=== PATIENT | male | born 1990 | race Caucasian/White ===

== ENCOUNTER 2024-09-07 22:50 | Inpatient (IN) | payer SELFPAY ==
[~2024-09-07] VITALS: Ht 175.3 cm; Wt 88.0 kg
[~2024-09-07 22:50] MED LIST: ACYC800 PO; HYDACE5 PO; HYDHCL10 PO; IBUP600 PO; IBUP800 PO; PRED20 PO; PROM25 PO; TRAM50 PO; TRIA80TC TOP
[2024-09-07] MEDS ORDERED: Morphine Sulfate 4 MG/1 ML Injection IV ONE (23:00)
[2024-09-07 23:08] LABS: Calcium, Ionized (POC) 1.17 mmol/L (1.10-1.46); Chloride (POC) 102 mmol/L (98-108); Creatinine (POC) 1.1 mg/dL (0.8-1.3); Glucose (ISTAT POC) 137 mg/dL (70-99); Hemoglobin (POC) 16.3 g/dL (13.5-17.5); Potassium (POC) 4.2 mmol/L (3.5-5.5); Sodium (POC) 139 mmol/L (135-148); Total CO2 (POC) 28 mmol/L (21-32)
[2024-09-07 23:09] LABS: BASOPHILS ABSOLUTE AUTO 0.06 K/mm3 (0.00-0.23); BASOPHILS PERCENT AUTO 0 % (0-2); EOSINOPHILS ABSOLUTE AUTO 0.05 K/mm3 (0.00-0.68); EOSINOPHILS PERCENT AUTO 0 % (0-6); Hematocrit 46.5 % (37.0-53.0); Hemoglobin 16.1 g/dL (13.5-17.5); IMMATURE GRAN PERCENT AUTO 1 % (0-1); LYMPHOCYTES ABSOLUTE AUTO 2.07 K/mm3 (0.84-5.20); LYMPHOCYTES PERCENT AUTO 15 % (21-46); MONOCYTES ABSOLUTE AUTO 0.73 K/mm3 (0.16-1.47); MONOCYTES PERCENT AUTO 5 % (4-13); Mean Corpuscular HGB 30.6 pg (26.0-34.0); Mean Corpuscular HGB Conc 34.6 g/dL (31.5-36.5); Mean Corpuscular Volume 88 fL (80-100); Mean Platelet Volume 10.2 fL (9.1-12.4); NEUTROPHILS ABSOLUTE AUTO 11.24 K/mm3 (1.96-9.15); NEUTROPHILS PERCENT AUTO 79 % (41-73); Platelet Count 337 K/mm3 (150-400); RDW Coefficient Variation 11.9 % (11.7-14.2); Red Blood Cell Count 5.26 M/mm3 (4.30-5.90); White Blood Cell Count 14.25 K/mm3 (4.00-11.30)
[2024-09-07] MEDS ORDERED: Ondansetron HCl 2 MG / ML 2ML Vial ONE (23:17)
[2024-09-07] MEDS ORDERED: Ondansetron HCl 2 MG / ML 2ML Vial IV ONE (23:25)
[2024-09-07 23:28] LABS: Albumin, Blood 4.3 g/dL (3.4-5.0); Albumin/Globulin Ratio 1.1 (0.8-1.8); Bilirubin, Total 0.6 mg/dL (0.1-1.0); Bun/Creatinine Ratio 13.1 (12.0-20.0); Calcium, Blood 10.3 mg/dL (8.5-10.1); Creatinine, Blood 0.99 mg/dL (0.60-1.20); Potassium, Blood 4.2 mmol/L (3.5-5.5); Total Protein, Blood 8.3 g/dL (6.4-8.2)
[2024-09-07 23:32] LABS: International Normalized Ratio 0.92; Prothrombin Time Results 9.9 Sec (9.7-11.5)
[2024-09-08] VITALS (16 sets, daily range): BP systolic 127–156; BP diastolic 77–111
[2024-09-08] MEDS ORDERED: Ondansetron HCl 2 MG / ML 2ML Vial ONE ×3 (00:52→19:53)
[2024-09-08] MEDS ORDERED: Ondansetron HCl 2 MG / ML 2ML Vial IV PRN (01:05)
[2024-09-08] MEDS ORDERED: Ondansetron HCl 2 MG / ML 2ML Vial IV ONE (01:05)
[2024-09-08] MEDS ORDERED: NS 1,000 ML IV SCH (01:05)
[2024-09-08] MEDS ORDERED: FentaNYL Citrate 50 MCG/ML 2 ML Injection IV PRN ×2 (01:05→04:00)
[2024-09-08] MEDS ORDERED: FLU VACC TS2024-25(6MOS UP)/PF 45 MCG/0.5 ML SYRINGE IM ONE (01:05)
[2024-09-08] MEDS ORDERED: VENL150ER PO (01:53)
[2024-09-08] MEDS ORDERED: AMPDEX30CR PO (01:54)
--- NOTE | 2024-09-08 02:57 | NUR ---
ARRIVAL TO UNIT PT ARRIVED TO UNIT AT APPROX 0145 FROM ER. PT HAS NG TUBE IN PLACE, HOOKED UP TO LIS WHEN IN BED. ABLE TO TRANSFER IND TO THE BED. PT ON TELE RUNNING SINUS IN THE 80'S. PT GIVEN CALL LIGHT AND EDUCATED ON HOW TO USE. VSS. NO OTHER CONCERNS AT THIS TIME CALL LIGHT WITHIN REACH
[2024-09-08] MEDS ORDERED: HYDROmorphone HCl/Pf 1MG SYR IV PRN (05:30)
--- NOTE | 2024-09-08 05:31 | NUR ---
SHIFT SUMMARY SINCE COMING TO FLOOR PT HAS SLEPT. LAB THEN CAME AROUND TO DRAW ANOTHER LACTIC ACID. PT THEN C/O NAUSEA, AND BEING HOT. PT GIVEN ZOFRAN, WASHCLOTH FOR HEAD AND A FAN. PT ALSO REPORTS HAS INC PAIN IN THE RUQ OF ABD AND BEING SLIGHTLY MORE DISTENDED. CALL PLACED WITH HOPSITALIST. NEW ORDERS FOR PAIN MEDS GIVEN. VS REMAIN STABLE. HOSPITALIST WILL DEFER TO GENERAL SURGERY FOR NG TUBE PLACMENT AND MANAGEMENT. PT RESTING WITH EYES CLOSED AT THIS TIME, CALL LIGHT WITHIN REACH
[2024-09-08 07:21] LABS: BASOPHILS ABSOLUTE AUTO 0.04 K/mm3 (0.00-0.23); BASOPHILS PERCENT AUTO 0 % (0-2); EOSINOPHILS ABSOLUTE AUTO 0.01 K/mm3 (0.00-0.68); EOSINOPHILS PERCENT AUTO 0 % (0-6); Hematocrit 46.1 % (37.0-53.0); Hemoglobin 15.8 g/dL (13.5-17.5); IMMATURE GRAN ABSOLUTE AUTO 0.11 K/mm3 (0.00-0.10); IMMATURE GRAN PERCENT AUTO 1 % (0-1); LYMPHOCYTES ABSOLUTE AUTO 1.04 K/mm3 (0.84-5.20); LYMPHOCYTES PERCENT AUTO 6 % (21-46); MONOCYTES ABSOLUTE AUTO 0.84 K/mm3 (0.16-1.47); MONOCYTES PERCENT AUTO 5 % (4-13); Mean Corpuscular HGB 30.2 pg (26.0-34.0); Mean Corpuscular HGB Conc 34.3 g/dL (31.5-36.5); Mean Corpuscular Volume 88 fL (80-100); NEUTROPHILS ABSOLUTE AUTO 15.49 K/mm3 (1.96-9.15); NEUTROPHILS PERCENT AUTO 88 % (41-73); Platelet Count 294 K/mm3 (150-400); RDW Coefficient Variation 11.9 % (11.7-14.2); RDW Standard Deviation 38.6 fL (35.1-46.3); Red Blood Cell Count 5.23 M/mm3 (4.30-5.90); White Blood Cell Count 17.53 K/mm3 (4.00-11.30)
[2024-09-08 07:38] LABS: Albumin, Blood 3.9 g/dL (3.4-5.0); Albumin/Globulin Ratio 1.1 (0.8-1.8); Bilirubin, Total 0.5 mg/dL (0.1-1.0); Bun/Creatinine Ratio 15.1 (12.0-20.0); Calcium, Blood 9.6 mg/dL (8.5-10.1); Creatinine, Blood 0.79 mg/dL (0.60-1.20); Globulin, Blood 3.6 g/dL (2.2-4.0); Potassium, Blood 4.2 mmol/L (3.5-5.5); Total Protein, Blood 7.5 g/dL (6.4-8.2)
[2024-09-08] MEDS ORDERED: HydrALAZINE HCl 20 MG / ML 1ML Vial IV PRN (08:00)
--- NOTE | 2024-09-08 10:27 | NUR ---
PER NURSING REPORT NG TUBE PLACED IN ED. NG TUBE SET TO INT SUCTION AT START OF SHIFT.
[2024-09-08] MEDS ORDERED: CeFAZolin Sodium 2,000 MG in NS 100 ML IV SCH (17:35)
--- NOTE | 2024-09-08 17:55 | NUR ---
SHIFT NOTE: PT A/OX4 ABLE TO MAKE HIS NEEDS KNOWN. HE IS ON RA WITH NO REPORTS OF SOB. HE IS ON TELE WITH NO ACUTE CHANGES THIS SHIFT. DENIES CHEST PAIN/PRESSURE. NG TUBE SET TO INT SUCTION T/O SHIFT. PT TRANSPORTED TO SURGERY AT 1755.
[2024-09-08] MEDS ORDERED: Bupivacaine 0.5% HCl 5 MG/ML 30MLVIAL ONE (18:07)
--- NOTE | 2024-09-08 18:13 | NUR ---
PT ARRIVES TO PACU VIA GURNEY FROM RM 224. PLEASANT & COOPERATIVE. SURGICAL PACK COMPLETE. SURGICAL HAT/PAS SLEEVES/BP CUFF PLACED. AFEBRILE/HYPERTIVE 143/102. LR AT TKO. DR FARRELL VERBAL ORDER FOR ANCEF 2MG IV PREOP MED. PT STATES "I DO FEEL BETTER THAN THIS MORNING". WARM BLANKETS PLACED. RESTING QUIETLY.
[2024-09-08] MEDS ORDERED: propofoL 20 ML IV ONE (18:20)
[2024-09-08] MEDS ORDERED: FentaNYL Citrate 50 MCG/ML 2 ML Injection ONE (18:20)
[2024-09-08] MEDS ORDERED: Rocuronium Bromide 10 MG/ML 5ML Injection IV ONE (18:20)
--- NOTE | 2024-09-08 18:35 | NUR ---
PT TO RM OR 2 VIA [facility]IGIO AT 1825 IN STABLE CONDITION.
[2024-09-08] MEDS ORDERED: Dexamethasone Sod Phos 10 MG/ML 1ML VIAL ONE (18:48)
[2024-09-08] MEDS ORDERED: Sugammadex Sodium 200 MG/2ML SDV (100 MG/ML) ONE (19:02)
[2024-09-08] MEDS ORDERED: HYDROcodone 5-APAP 325 TAB PO PRN (19:35)
[2024-09-08] MEDS ORDERED: Ketorolac Tromethamine 30mg Vial ONE (19:36)
[2024-09-08] MEDS ORDERED: Ketorolac Tromethamine 15mg Vial IV PRN (19:40)
[2024-09-09 00:33] VITALS: BP 120/83
[2024-09-09 04:30] VITALS: BP 113/82
--- NOTE | 2024-09-09 06:21 | NUR ---
SHIFT SUMMARY NOC. PT POD 1 FOR LAP DIAGNOSTIC. PT'S LAP SITES X3 ARE C/D/I. PT TOLERATING PO INTAKE AND VOIDING DARK YELLOW URINE. PT DENIES PAIN T/O THE SHIFT AND PT DENIED NEED FOR PAIN MEDS. A/O X4. CALL LIGHT IN REACH AND MAKES NEEDS KNOWN.
[2024-09-09 07:10] VITALS: BP 120/84
== END 2024-09-09 14:07 | disposition home or self-care (01) | DRG 335 ==
LOC: ER 22:50 → SURS 09-08 01:02 → ERHOLD 09-08 01:02 → SURS 09-08 01:36
PROVIDERS: Student in an Organized Health Care Education/Training Program; Surgery; ADMIT Internal Medicine
PROC: 0D9670Z Drainage of Stomach with Drainage Device, Via Natural or Artificial Opening (ICD-10-PCS; 2024-09-08)
PROC: 0DNU4ZZ Release Omentum, Percutaneous Endoscopic Approach (ICD-10-PCS; principal; 2024-09-08 18:00)
DX: K56.609 Unspecified intestinal obstruction, unspecified as to partial versus complete obstruction (principal); Q79.0 Congenital diaphragmatic hernia; F32.A Depression, unspecified; F90.9 Attention-deficit hyperactivity disorder, unspecified type; K66.0 Peritoneal adhesions (postprocedural) (postinfection); Z98.890 Other specified postprocedural states; Z79.899 Other long term (current) drug therapy; Z87.19 Personal history of other diseases of the digestive system; Z28.89 Immunization not carried out for other reason
CPT/HCPCS: 36415; 71275; 74018; 74174; 80047; 80053; 83605; 83880; 84484; 85014; 85025; 85610; 85730; 93005; 93010; 96374-59; 96375; 96376; 99285-25; J0690; J1100; J1171; J1885; J2270; J2405; J2704; J3010; J7030; Q9967